=== PATIENT | male | born 1965 | race Caucasian/White ===

== ENCOUNTER → 2018-06-28 | Outpatient (CLI) | payer BC | LOC: M.ULTRA 06-20 16:31 | DX: E04.1 Nontoxic single thyroid nodule (principal); N28.1 Cyst of kidney, acquired; K76.0 Fatty (change of) liver, not elsewhere classified; E80.4 Gilbert syndrome; R16.0 Hepatomegaly, not elsewhere classified; D73.89 Other diseases of spleen ==